=== PATIENT | female | born 1980 | race Caucasian/White ===

== ENCOUNTER 2016-07-04 10:41 | Emergency (ER) | payer BC ==
[2016-07-04] MEDS ORDERED: ONDANSETRON 4 MG TAB.RAPDIS ONE (10:57)
[2016-07-04] MEDS: ONDANSETRON 4 MG TAB.RAPDIS PO ONE (10:59)
[2016-07-04] MEDS ORDERED: ONDANSETRON HCL/PF 2 MG/ML VIAL ONE (11:16)
[2016-07-04] MEDS: NORMAL SALINE 1,000 ML IV ONE (11:19)
[2016-07-04] MEDS: ONDANSETRON HCL/PF 2 MG/ML VIAL IV ONE (11:19)
[2016-07-04 11:27] LABS: Hemoglobin 12.3 gm/dL (12.5-16.0); Mean Cell Volume 83.9 fl (78-100); Mean Corpuscular Hemoglobin 27.9 pg (27-31); Mean Corpuscular Hgb Conc 33.2 g/dl (32-36); Mean Platelet Volume 9.6 fl (6.0-9.5); Neutrophil # 11.4 K/mm3 (1.3-6.0); Neutrophil % 88.7 % (42-75.0); Platelet Count 443 K/mm3 (150-450); Red Blood Count 4.41 M/mm3 (4.2-5.4); Red Cell Distribution Width 15.1 % (11.5-14.0); White Blood Count 12.8 K/mm3 (4.0-10.5)
[2016-07-04 11:37] LABS: Albumin * 3.6 gm/dl (3.4-5.0); Anion Gap 14.9 mmol/L (6.8-13.8); BUN/Creatinine Ratio 17.9 (9.0-21.6); Bilirubin, Total 0.4 mg/dL (0.0-1.1); Ca. Corrected For Albumin 9.5 mg/dL (8.4-10.2); Calcium * 9.5 mg/dL (7.9-10.9); Carbon Dioxide 21.4 mmol/L (24-32.6); Potassium 4.3 mmol/L (3.4-4.6); Total Protein 7.2 gm/dL (6.2-8.2)
--- NOTE | 2016-07-04 11:51 | ERNOTE ---
Medical Problem HPI - Narrative Date of Service: 07/04/16 - General Chief Complaint: Nausea/Vomiting Time Seen by Provider: 07/04/16 11:50 Source: patient, family - MOM - Immun/Allergies/Home Medications Immunizations: IMMUNIZATION HX Immunizations Up to Date Yes History of Influenza Vaccine No Hx Pneumococcal Vaccination No Allergies/Adverse Reactions: Allergies Penicillins Allergy (Intermediate, Verified 12/26/15 19:14) rash cefaclor [From Ceclor] Allergy (Verified 12/26/15 19:14) Home Medications: HOME MEDICATIONS Pantoprazole Sodium [Protonix] 40 mg PO DAILY@0700 #30 tablet. 12/28/15 [Last Taken Unknown] predniSONE [Prednisone] 3 tab PO DAILY #42 tab 12/28/15 [Last Taken Unknown] Prochlorperazine [Compazine] 25 mg RC TID PRN #5 supp.rect 07/04/16 [Last Taken Unknown] - History of Present History Narrative: STARTED VOMITING ABOUT 0200 AND SAYS SHE HAS HAD "100" EPISODES SINCE. SHE DID TRY AN OTC WATCH FOR MOTION SICKNESS. NO DIARRHEA. NO FEVER ,NO KNOWN CONTACTS - EVERY ON E IN THE FAMILY IS FINE. SHE SAYS SHE IS NOT WITH LMP 2 WEEKS AGO. SHE WONDERS IF IT IS FROM A NEEDLE PROCESS [employer] SHE ATE LAST NIGHT FROM [employer] . ER STAFF SAYS THAT THEY HAVE BEEN SEEING ALOT OF [employer] IN THE ER LATELY. Review of Systems - Review of Systems Constitutional: Present: See HPI EYE: Present: no symptoms reported ENT: Present: no symptoms reported Respiratory: Present: no symptoms reported Cardiology: Present: no symptoms reported Gastrointestinal/Abdominal: Present: nausea, vomiting Genitourinary: Present: no symptoms reported Musculoskeletal: Present: no symptoms reported Skin: Present: no symptoms reported Neurological: Present: no symptoms reported Endocrine: Present: no symptoms reported Hematologic/Lymphatic: Present: no symptoms reported Psych: Present: no symptoms reported All Other Systems: All systems neg except as marked - Patient's Past Medical History Patient History - Medical: Anemia, Other Patient History - Cardiac/Respiratory: No pertinent hx Patient History - Cancer: No Hx of Cancer Patient History - Surgical Procedures: No surgical history, Colonoscopy, EGD Patient History - Other: None LMP (Calendar): 06/20/16 - Family History Father Family History - Cardiac/Respiratory: CVA/Stroke, Hypertension, Hyperlipidemia Mother Family History - Cardiac/Respiratory: Hypertension - Social History Living Situations: home Abuse History: No History of abuse Psych History: No pertinent hx Does anyone smoke in the home?: No Smoking Status: Never smoker Have you smoked in the past 12 months: No Alcohol Use: rarely Drug Use: none - Immunizations Immunizations Up to Date: Yes Hx Pneumococcal Vaccination: No History of Influenza Vaccine: No Physical Exam - Physical Exam General Appearance: Present: wd/wn, alert, moderate distress - NAUSEA AND RETCHING, NO SIGNIFICANT FLUID PRODUCED Ears, Nose, Throat: Present: normal ENT inspection Neck: Present: normal inspection Respiratory: Present: no respiratory distress, normal breath sounds, no accessory muscle use, chest nontender, lungs clear Cardiovascular/Chest: Present: regular rate, rhythm, no murmur, normal peripheral pulses Gastrointestinal/Abdominal: Present: normal bowel sounds, nontender, nondistended, soft, no organomegaly Back Exam: Present: normal inspection, normal range of motion, no CVA tenderness , no vertebral tenderness Neurological Exam: Present: alert, oriented, normal mood/affect, no motor/ sensory deficits Skin Exam: Present: normal color, warm/dry. Absent: skin rash ED Progress - Date and Time Seen: Date and Time: 07/04/16 13:14 AFTER THE COMPAZINE THERE IS NO MORE VOMITING THOUGH SHE STILL HAS SOME NAUSEA. SHE IS GETTING HER SECOND LITER OF N.S. VSS. 07/04/16 14:11 AFTER THE SECOND LITER THERE IS NO MORE VOMITING THOUGH SHE HAS SOME NAUSEA STILL AND SHE WAS WARNED THIS MAY LAST FOR ABOUT 24-48 HRS AND SOME DIARRHEA MAY ENSUE IF SHE HAS DEVELOPED THE LOCAL GASTROENTERITIS. - Results and Orders Patient's Lab Results:: I have reviewed the patient's lab results. Results and Orders: LABS NORMAL EXCEPT FOR MILD WBC ELEVATION. SHE IS NOT . - Vital Signs Vital Signs: Vital Signs 07/04/16 10:51 Temperature 36.3 C L Pulse Rate 89 Respiratory 16 Rate Blood Pressure 115/67 O2 Sat by Pulse 98 Oximetry - Progress/Reassessment Chief Complaint: Nausea/Vomiting Plan - Plan Plan: I WILL ADD COMPAZINE IV TO SEE IF IT HELPS HER NAUSEA BETTER THAN THE ZOFRAN WHICH DOES NOT SEEM TO BE DOING ANYTHING. Departure - Departure Clinical Impression: Nausea and vomiting in adult patient Disposition: Home Follow Up Needed Condition: Fair Instructions: Nausea and Vomiting, Adult, [id number] Referrals: Royer Mathew MD [Primary Care Provider] - Prescriptions: Prochlorperazine [Compazine] 25 mg RC TID PRN #5 supp.rect PRN Reason: Nausea And Vomiting
[2016-07-04] MEDS ORDERED: PROCHLORPERAZINE EDISYLATE 5 MG/ML VIAL ONE (12:02)
[2016-07-04] MEDS: PROCHLORPERAZINE EDISYLATE 5 MG/ML VIAL IV ONE (12:08)
--- OUTSIDE RECORDS SUMMARY | 2016-07-04 12:15 | XMS REPORT | Continuity of Care Document ---
:1980 Author Organization [facility] ([facility]) Address [address] [place] [address] Phone [phone] Care Team Providers Name Role Phone Royer Mathew Primary Care Provider [phone] Source Comments This disclosure is being made pursuant to the Care Everywhere program, applicable federal and state laws, and may not contain all informaitonavailable regarding this patient.[facility] ([facility]) Active Allergies and Adverse Reactions Allergen Noted Date Severity Reactions Comments Penicillin 01/16/2016 Rash childhood Current Medications Prescription Sig. Disp. Refills Start Date End Date Status pantoprazole 40 mg EC Take 40 mg by Active tablet mouth daily. predniSONE 5 mg tablet Start with 40 mg 240 tablet 2 01/16/2016 Active daily and taper with 5 mg every 2 weeks. polyethylene Take as directed 4000 mL 0 01/16/2016 Active glycol-electrolyte (NULYTELY) suspension Active Problems Problem Noted Date Crohn's ileitis 01/16/2016 Most Recent Encounters Date Type Specialty Providers Description 05/14/2016 Hospital Encounter Radiology Anton Gibson MD Dx: Crohn's disease of small intestine with intestinal obstruction 04/23/2016 Office Visit Med GI/Hepatology Eliud Lobo, Dx: Crohn's disease of small intestine with intestinal obstruction (Primary Dx) Immunizations Name Dates Previously Given Next Due Hepatitis B, adult 04/23/2016 MMR 05/04/1996 Pneumococcal Conjugate, PCV13 (Prevnar 13) 01/16/2016 Tdap 12/11/2014,03/02/2012 Social History Tobacco Use Types Packs/Day Years Used Date Never Smoker Smokeless Tobacco: Never Used Tobacco Cessation:Counseling Given: Yes Comments: Alcohol Use Drinks/Week oz/Week Comments Yes 2 Glasses of wine Last Filed Vital Signs Vital Sign Reading Time Taken Blood Pressure 113/69 04/23/2016 9:55 AM [employer] Pulse 86 04/23/2016 9:55 AM [employer] Temperature 37.2 C (99 F) 04/23/2016 9:55 AM [employer] Respiratory Rate 16 02/01/2016 1:58 PM CDT Height 1.626 m (5' 4") 04/23/2016 9:55 AM [employer] Weight 51.1 kg (112 lb 10.5 oz) 04/23/2016 9:55 AM [employer] Body Mass Index 19.33 04/23/2016 9:55 AM [employer] Oxygen Saturation 97% 02/01/2016 1:58 PM CDT Plan of Care Date Type Specialty Providers Description 09/10/2016 Appointment Med GI/Hepatology Eliud Lobo MD Chief Comp: Patient [address] [place] [address] Visit [phone] (Fax) Health Maintenance Due Date Last Done Comments Lipid Disorder Screening 1999 Varicella Vaccine (1 of 2 - Adult - No 1999 Evidence of Immunity) Cervical Cancer Screening 2011 Influenza Vaccine: Seasonal (#1) 12/17/2015 Hepatitis B Vaccine (2 of 3 - Primary 05/21/2016 04/23/2016 Series) Td Vaccine 12/11/2024 12/11/2014, 03/02/2012 MMR Vaccine Completed 05/04/1996 Tdap Vaccine Completed 12/11/2014, 03/02/2012 Results from Last 3 Months MRI ENTEROGRAPHY W/WO ([id number]) (05/14/2016 4:27 PM) Impressions Impression: 1. 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 No inflammatory changes to suggest active disease. 2. Focal dilatation of small bowel loops proximal to the stenoses without evidence of high-grade obstruction. 3. Small hepatic cyst. Narrative Procedure:MRI ENTEROGRAPHY W/WO ([id number]) Clinical Indication: Concern for small bowel Crohn's disease. CT scan in [facility] in October concerning for strictures. Technique: MRI of the abdomen was performed on a 1.5 Emi scanner using an MR Enterography protocol. Imaging included 3 plane trueFISP localizer, coronal real-time cine trueFISP, coronal T2 HASTE, coronal and axial SPAIR fat-sat T2 HASTE, coronal diffusion-weighted imaging, and pre- and post-contrast axial and coronal fat-sat T1 VIBE. The patient received 1 mg of intravenous glucagon during the study. Imaging was performed before and after 7.5 cc IV Gadavist. Comparison: None Findings: There is a high T2, nonenhancing 1 cm hepatic cyst near the dome of the liver. The gallbladder is normal. No biliary ductal dilatation. Spleen, pancreas, adrenal glands, and kidneys are normal. There are at least 3 areas of narrowing demonstrated within the small bowel, with associated wall thickening and delayed enhancement. These include 2 areas within the left upper quadrant within the proximal jejunum measuring approximately 2.2 and 1.5 cm in length (image 13-28 [caudal to the spleen] and image 13-38 [just distal to the first stricture]) and 1 within the lower abdomen measuring approximately 3.5 cm in length (image 11-12). There is focal upstream dilatation of small bowel loops proximal to these areas of narrowing. No surrounding acute inflammatory changes. The colon is nondistended. Appendix is not definitively visualized. There is small pelvic free fluid, likely physiologic. No loculated fluid collections. No mesenteric or retroperitoneal lymphadenopathy. Uterus appears normal. No adnexal masses. Small [place]'s duct cysts, left greater than right. Tampon incidentally noted within the vaginal canal. Procedure Note [place], Incoming Imaging Results - ThuMay 14, 2016 6:22 PM [employer] Procedure:MRI ENTEROGRAPHY W/WO ([id number]) Clinical Indication: Concern for small bowel Crohn's disease. CT scan in [facility] in October concerning for strictures. Technique: MRI of the abdomen was performed on a 1.5 Emi scanner using an MR Enterography protocol. Imaging included 3 plane trueFISP localizer, coronal real-time cine trueFISP, coronal T2 HASTE, coronal and axial SPAIR fat-sat T2 HASTE, coronal diffusion-weighted imaging, and pre- and post-contrast axial and coronal fat-sat T1 VIBE. The patient received 1 mg of intravenous glucagon during the study. Imaging was performed before and after 7.5 cc IV Gadavist. Comparison: None Findings: There is a high T2, nonenhancing 1 cm hepatic cyst near the dome of the liver. The gallbladder is normal. No biliary ductal dilatation. Spleen, pancreas, adrenal glands, and kidneys are normal. There are at least 3 areas of narrowing demonstrated within the small bowel, with associated wall thickening and delayed enhancement. These include 2 areas within the left upper quadrant within the proximal jejunum measuring approximately 2.2 and 1.5 cm in length (image 13-28 [caudal to the spleen] and image 13-38 [just distal to the first stricture]) and 1 within the lower abdomen measuring approximately 3.5 cm in length (image 11-12). There is focal upstream dilatation of small bowel loops proximal to these areas of narrowing. No surrounding acute inflammatory changes. The colon is nondistended. Appendix is not definitively visualized. There is small pelvic free fluid, likely physiologic. No loculated fluid collections. No mesenteric or retroperitoneal lymphadenopathy. Uterus appears normal. No adnexal masses. Small [place]'s duct cysts, left greater than right. Tampon incidentally noted within the vaginal canal. IMPRESSION Impression: 1. 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 No inflammatory changes to suggest active disease. 2. Focal dilatation of small bowel loops proximal to the stenoses without evidence of high-grade obstruction. 3. Small hepatic cyst. HEPATITIS B CORE ANTIBODY(G&M) (04/23/2016 10:49 AM) Component Value Range Hep B Core Abs Total (IgG & IgM) Negative Negative Specimen Blood TISSUE TRANSGLUTAMINASE IGA (04/23/2016 10:49 AM) Component Value Range TTG IgA, Quantitative <0.5 0.0-15.0 U/mL TTG IgA, Qualitative Negative Negative Specimen Blood GLIADIN (DEAMIDATED) IGA ANTIBODY (04/23/2016 10:49 AM) Component Value Range Gliadin (Deamidated) IgA Antibody, Quant <0.2 0.0-15.0 U/mL Gliadin (Deamidated) IgA Antibody, Qual Negative Negative Specimen Blood
[2016-07-04 14:06] VITALS: BP 113/59
== END 2016-07-04 14:10 | disposition home or self-care (01) ==
LOC: ER 10:41
DX: R11.2 Nausea with vomiting, unspecified (principal)